=== PATIENT | female | born 1995 | race Caucasian/White ===

== ENCOUNTER → 2021-04-23 | Outpatient (CLI) | payer OTHER | LOC: M.RAD 13:35 | PROVIDERS: ATTEND Family Medicine | DX: M25.561 Pain in right knee (principal) ==

== ENCOUNTER → 2021-06-03 | Outpatient (CLI) | payer OTHER | LOC: M.RAD 12:05 | PROVIDERS: ATTEND Family Medicine | DX: M54.16 Radiculopathy, lumbar region (principal) ==

== ENCOUNTER → 2021-06-05 | Outpatient (CLI) | payer OTHER ==
[2021-06-05 12:54] LABS: HEMATOCRIT 36.4 % (37.0-47.0); HEMOGLOBIN 11.8 gm/dL (12.0-15.0); MCH 26.5 pg (26.0-34.0); MCHC 32.3 g/dL (28.0-37.0); MCV 82.1 fL (80.0-100.0); RBC 4.44 mil/uL (4.20-5.00); RDW-CV 13.9 % (10.5-14.5); WBC 8.1 thou/uL (4.0-11.0)
[2021-06-05 13:12] LABS: ALBUMIN 3.7 g/dL (3.4-5.0); ALKALINE PHOSPHATASE 76 U/L (46-116); ANION GAP 8 mmol/L (7-16); BUN 16 mg/dL (7-18); CALCIUM 8.9 mg/dL (8.5-10.1); CHLORIDE 105 mmol/L (98-107); CO2 26 mmol/L (21-32); CREATININE 0.8 mg/dL (0.6-1.3); GLUCOSE 90 mg/dL (70-99); SGOT 17 U/L (15-37); SGPT 32 U/L (30-65); SODIUM 139 mmol/L (136-145); TOTAL BILIRUBIN 0.4 mg/dL (<0.1-1.0); TOTAL PROTEIN 7.6 g/dL (6.4-8.2)
[2021-06-05 15:04] LABS: CHOLESTEROL 171 mg/dL (<200); HDL CHOLESTEROL 44 mg/dL (>40); LDL CHOLESTEROL 111 mg/dL (<100); TC:HDL 3.9 Ratio (Not establshd); TRIGLYCERIDE 80 mg/dL (<150); VLDL 16 mg/dL (<40)
[2021-06-05 15:05] LABS: SERUM ASSESSMENT Clear
[2021-06-05 22:06] LABS: GLYCOHEMOGLOBIN (HGB A1C) 5.7 % (4.8-5.6)
== END ==
LOC: M.LAB 12:23
PROVIDERS: ATTEND Surgery
DX: E28.2 Polycystic ovarian syndrome (principal); E66.01 Morbid (severe) obesity due to excess calories; Z79.899 Other long term (current) drug therapy